=== PATIENT | female | born 1945 | race Caucasian/White ===

== ENCOUNTER 2017-06-28 07:30 | Observation (INO) | payer OTHER ==
--- NOTE | 2017-06-28 06:48 | PDHPUP ---
History & Physical Update H&P update statement: This history and physical update is based on an assessment of the patient which was completed after admission or registration (within 24 hours), but prior to the surgery/procedure. H&P update: H&P reviewed & patient examined, no change in patient's condition since H&P completed
[~2017-06-28 07:30] MED LIST: VANCOMYCIN HCL/NORMAL SALINE 250 ML IV ONE
[2017-06-28] MEDS ORDERED: THROMBIN (BOVINE) 5,000 UNIT VIAL TP ONE (07:43)
[2017-06-28] MEDS ORDERED: BACITRACIN 50,000 UNITS/10 ML SYR IRR ONE ×2 (07:44→09:46)
[2017-06-28] MEDS ORDERED: CHLORHEXIDINE GLUC HIBICLENS 118 ML BTL TP ONE (07:49)
[2017-06-28] MEDS ORDERED: BUPIVACAINE 0.25% 30 ML SDV ONE (07:49)
[2017-06-28] MEDS ORDERED: GABAPENTIN 300 MG CAP PO ONE (08:15)
[2017-06-28] MEDS ORDERED: ACETAMINOPHEN 500 MG TAB PO ONE (08:15)
[2017-06-28] MEDS ORDERED: VANCOMYCIN PHARMACY TO DOSE MISC ONE (08:15)
[2017-06-28] MEDS ORDERED: LIDOCAINE 1% 2 ML INJ ID PRN (08:16)
[2017-06-28] MEDS ORDERED: LR 1,000 ML IV ONE (08:16)
[2017-06-28] MEDS ORDERED: MIDAZOLAM 2 MG/2 ML VIAL IVP ONE (09:45)
[2017-06-28] MEDS ORDERED: PROMETHAZINE HCL 25 MG/ML INJ IVP PRN (09:50)
[2017-06-28] MEDS ORDERED: ALBUTEROL 3 ML DEYVIAL IH PRN (09:50)
[2017-06-28] MEDS ORDERED: DEXAMETHASONE 4 MG/ML VIAL IVP PRN (09:50)
[2017-06-28] MEDS ORDERED: NALOXONE HCL 0.4 MG/ML INJ IVP PRN (09:50)
[2017-06-28] MEDS ORDERED: oxyCODONE IR 5 MG TAB PO PRN (09:50)
[2017-06-28] MEDS ORDERED: fentaNYL 100 MCG/2 ML INJ IVP PRN (09:50)
[2017-06-28] MEDS ORDERED: ONDANSETRON 4 MG/2 ML VIAL IVP PRN ×2 (09:50→12:30)
[2017-06-28] MEDS ORDERED: HYDROmorphONE/DILAUDID 1 MG/ML INJ IVP PRN (09:50)
[2017-06-28] MEDS ORDERED: HYDROCODONE/APAP 5/325 TAB PO PRN (09:50)
--- NOTE | 2017-06-28 09:55 | PDANEPAE ---
ANE History of Present Illness C3-4 ACDF ANE Past Medical History - Cardiovascular History Hx Hypertension: No Hx Arrhythmias: No Hx Chest Pain: No Hx Coronary Artery / Peripheral Vascular Disease: No Hx CHF / Valvular Disease: No Hx Palpitations: No Cardiovascular History Comment: triamerene/hctz for water retension - Pulmonary History Hx COPD: No Hx Asthma/Reactive Airway Disease: No Hx Recent Upper Respiratory Infection: No Hx Oxygen in Use at Home: No Hx Sleep Apnea: No Sleep Apnea Screening Result - Last Documented: Negative Pulmonary History Comment: paralysed right diaphram, - Neurologic History Hx Cerebrovascular Accident: No Hx Seizures: No Hx Dementia: No - Endocrine History Hx Diabetes: No - Renal History Hx Renal Disorders: No - Liver History Hx Hepatic Disorders: No - Neurological & Psychiatric Hx Hx Neurological and Psychiatric Disorders: No - Cancer History Hx Cancer: No - Congenital Disorder History Hx Congenital Disorders: No - GI History Hx Gastrointestinal Disorders: No - Other Health History Other Health History: none - Chronic Pain History Chronic Pain: Yes (lower) - Surgical History Prior Surgeries: none ANE Review of Systems Review of Systems: - Exercise capacity METS (RN): 4 METS ANE Patient History - Allergies Allergies/Adverse Reactions: cefuroxime Allergy (Verified 06/27/17 10:34) Rash cephalexin [From Keflex] Allergy (Verified 06/27/17 10:34) Rash clindamycin Allergy (Verified 06/27/17 10:34) Rash iodine Allergy (Verified 06/27/17 10:33) RASH ALL OVER BODY latex Allergy (Verified 06/27/17 10:34) Swelling/neck,face,throat meloxicam Allergy (Verified 06/27/17 10:34) Vomiting moxifloxacin [From Avelox] Allergy (Verified 06/27/17 10:34) Rash Penicillins Allergy (Verified 06/27/17 10:34) Other-Enter Comments Sulfa (Sulfonamide Antibiotics) Allergy (Verified 06/27/17 10:34) Rash - Home Medications Home Medications: Aspirin [Aspirin 81mg (*)] 81 mg PO DAILY 06/09/17 [Last Taken 06/21/17] Atorvastatin Calcium [Lipitor 10 mg (*)] 10 mg PO DAILY 06/09/17 [Last Taken 05/14] Cholecalciferol Vit D3 [Vitamin D3 (*)] 1,000 units PO DAILY 06/09/17 [Last Taken 06/21/17] Herbals/Supplements -Info Only 1 ea PO DAILY 06/09/17 [Last Taken 06/21/17] Multivitamins [Multivitamin (*)] 1 each PO DAILY 06/09/17 [Last Taken 06/21/17] [place]-3 Fatty Acids [Fish Oil 1000 mg (*)] 1,000 mg PO DAILY 06/09/17 [Last Taken 06/21/17] Triamterene/Hctz 37.5/25 [Maxzide-25 (*)] 0.5 tab PO DAILY 06/09/17 [Last Taken 06/26/17] - NPO status NPO Since - Liquids (Date): 06/27/17 NPO Since - Liquids (Time): 22:00 NPO Since - Solids (Date): 06/27/17 NPO Since - Solids (Time): 20:00 - Smoking Hx Smoking Status: Former smoker - Family Anes Hx Family Hx Anesthesia Complications: none ANE Labs/Vital Signs - Vital Signs Blood Pressure: 142/90 Heart Rate: 63 Respiratory Rate: 18 O2 Sat (%): 95 Height: 157.48 cm Weight: 63.049 kg ANE Physical Exam - Airway Neck exam: FROM Mallampati Score: Class 2 Mouth exam: normal dental/mouth exam - Pulmonary Pulmonary: clear to auscultation - Cardiovascular Cardiovascular: regular rate and rhythym - ASA Status ASA Status: II ANE Anesthesia Plan Anesthesia Plan: general endotracheal anesthesia Total IV Anesthesia: Yes
[2017-06-28] MEDS ORDERED: MIDAZOLAM 2 MG/2 ML VIAL ONE (09:57)
[2017-06-28] MEDS ORDERED: SCOPOLAMINE HYDROBROMIDE 1 MG/3 DAYS PATCH TD ONE (09:58)
[2017-06-28] MEDS ORDERED: SCOPOLAMINE HYDROBROMIDE 1 MG/3 DAYS PATCH TD SCH (10:00)
[2017-06-28] MEDS ORDERED: REMIFENTANIL HCL 1 MG VIAL ONE ×3 (10:01→10:02)
[2017-06-28] MEDS ORDERED: PROPOFOL/EMULSION 500 MG/50 ML BOTTLE IV ONE ×3 (10:02→10:03)
[2017-06-28] MEDS ORDERED: SUCCINYLCHOLINE CHLORIDE 200 MG/10 ML SYR IVP ONE (10:12)
[2017-06-28] MEDS ORDERED: RANITIDINE 50 MG/2 ML VIAL ONE (10:45)
[2017-06-28] MEDS ORDERED: METOCLOPRAMIDE 10 MG/2 ML VIAL ONE (10:45)
[2017-06-28] MEDS ORDERED: ONDANSETRON 4 MG/2 ML VIAL ONE (10:46)
[2017-06-28] MEDS ORDERED: DEXAMETHASONE 4 MG/ML VIAL ONE ×2 (10:46)
--- NOTE | 2017-06-28 12:16 | POSTANESTH ---
Post Anesthetic Evaluation Cardiovascular Status: Normal, Stable Respiratory Status: Normal, Stable Level of Consciousness/Mental Status: Can Participate in Eval, Alert and Oriented Pain Control: Adequate, Prn Tx Ordered Nausea/Vomiting Control: Adequate, Prn Tx Ordered Complications Possibly Related to Anesthesia: None Noted
[2017-06-28] MEDS ORDERED: METHOCARBAMOL 750 MG TAB PO PRN (12:30)
[2017-06-28] MEDS ORDERED: diphenhydrAMINE 25 MG CAP PO PRN (12:30)
[2017-06-28] MEDS ORDERED: POLYETHYLENE GLYCOL 3350 17 GM PKT PO PRN (12:30)
[2017-06-28] MEDS ORDERED: LACTULOSE 20 GM/30 ML UDCUP PO PRN (12:30)
[2017-06-28] MEDS ORDERED: MAGNESIUM HYDROXIDE 30 ML UDCUP PO PRN (12:30)
[2017-06-28] MEDS ORDERED: HYDROmorphone HCL/NS 0.5 MG/ML SYR IVP PRN (12:30)
[2017-06-28] MEDS ORDERED: BISACODYL 10 MG SUPP PR PRN (12:30)
[2017-06-28] MEDS ORDERED: ONDANSETRON DISINTEGRATING 4 MG TAB PO PRN (12:30)
--- NOTE | 2017-06-28 12:30 | SOAPPROG ---
SOAP Progress Note Assessment/Plan: Post Op Visit: S: Awake and alert. Pt with some expected neck pain O: AFVSS/PERRLA/EOMI no droop CN 2-12 grossly intact +lt touch 5/5 BUE/BLE = CDI neck soft and supple collar in place A/P: 72 yo female that is s/p ACDF C3/4 -orders in place -call with any questions or concerns -neck soft and supple -pt seen by Dr Atkinson as well -admit to 3N 06/28/17 12:26 Objective: Vital Signs Temp Pulse Resp BP Pulse Ox 36.4 C 63 18 142/90 H 95 06/28/17 11:38 06/28/17 11:38 06/28/17 11:38 06/28/17 11:38 06/28/17 11:38 ICD10 Worksheet Patient Problems: Problems Problem Status Onset Arthrodesis status Acute Cervical spinal stenosis Acute - ICD10 Problem Qualifiers (1) Cervical spinal stenosis (2) Arthrodesis status
[2017-06-28] MEDS: ACETAMINOPHEN 500 MG TAB PO SCH ×2 (14:45→21:52)
--- NOTE | 2017-06-28 15:03 | GOP ---
[f rep st] OPERATIVE REPORT DATE OF OPERATION: 06/28/2017 SURGEON: Carlos Alberto Atkinson MD REIMBURSEMENT ANALYST: Antonio Jorgensen PA-C. 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 PROCEDURE PERFORMED: Anterior cervical diskectomy with decompression and fusion C3-4 (61094), placem ent of biomechanical intervertebral device C3-4, same incision bone graft harvest, anterior cervical instrumentation C3-4, microscope. FINDINGS: ESTIMATED BLOOD LOSS: 50 cc. INDICATIONS: The patient is a 72-year-old with multilevel cervical stenosis that was most profound a t the C3-4 level, and there was subtle evidence of possible myelomalacia at that level, but she also had diaphragmatic paralysis on the right-hand side. It is unclear whether or not this could be relat ed to the problem at C3-4, and we were not sure of this. I did not anticipate surgery would alleviat e that problem, but given the severity of her stenosis at C3-4 and her cervicalgia, I suggested a sin gle-level ACDF at that level. She also had mild spondylolisthesis at C4-5 and some degree of stenosi s at 5-6, 6-7, but none of the other levels showed any evidence of constriction of the spinal cord, a nd so I therefore suggested only a single-level surgery. The risk of esophageal injury, carotid inju ry, recurrent laryngeal nerve injury, dysphagia, pseudoarthrosis, adjacent segment disease, the possi ble need for future spine surgery, this was all discussed. She wanted to proceed despite the risks. DESCRIPTION OF PROCEDURE: Patient was taken to the operating room, placed in supine position. Gener al anesthesia was begun. A midline shoulder roll was placed. Arms were tucked at the side. The nec k was kept neutral, but the occiput was extended. Her neck was sterilely prepped and draped in the u sual fashion. A localizing x-ray was taken. We made a transverse incision in the rostral neck creas e on the right-hand side. The subcutaneous tissue was dissected with Bovie cautery down through the platysma. We then used a combination of sharp and blunt dissection, working our way down medial to t he sternocleidomastoid and lateral to the strap muscles down to the prevertebral space. Exposure was straightforward. We elevated the longus colli muscles off the spine, inserted a needle at C3-4, javy t an x-ray confirming the location then put distraction pins at C3-4. We then incised the C3-4 disk, removed the disk and the cartilaginous endplates. Operating microscope was introduced. We then akila lled and harvested subchondral bone for autologous grafting purposes, and under the scope, we opened the posterior longitudinal ligament and decompressed the thecal sac and the neural foramen bilaterall y. A nice decompression was obtained. There was some epidural bleeding at the nerve root sleeves bi laterally in the foramen, and this was controlled with a small piece of Gelfoam. We then chose a 7 m m x 14 x 11 mm device. It was fashioned to fit in the space at C3-4 and packed with autologous bone dust and it was inserted. A nice fit was obtained. We removed our distraction pins and placed a 21 mm plate down across C3-4. We placed a single screw at C3, a single screw at C4, shot an x-ray, and we were happy with the position of the implant. We then placed the remaining 2 screws and locked all 4 screws according to company specification. This was verified with the people in the room. We the n achieved meticulous hemostasis. There had been very little blood loss during the procedure or duri ng the exposure. We then placed some 0.25% Marcaine in the prevertebral space and then closed the pl atysma with interrupted Vicryl sutures, and the skin was reapproximated with interrupted Vicryl sutur es. Steri-Strips were applied to the skin. The patient was reversed from anesthesia, extubated, and transferred to the recovery room in stable condition. COMPLICATIONS: None. INSTRUMENTATION USED: [employer] 21 mm Zevo plate with 7 x 14 x 11 mm Peek PTC implant, and we used 1 3 x 3.5 mm screws, and they were all locked according to company specification. /[id number]/MODL
[2017-06-28] MEDS: NS W/ 20 KCl/L 1,000 ML IV SCH (15:24)
[2017-06-28] MEDS: oxyCODONE IR 5 MG TAB PO PRN (17:02)
[2017-06-28] MEDS ORDERED: SENNOSIDES 17.6 MG/10 ML UDL PO SCH (21:00)
[2017-06-28] MEDS: SENNOSIDES/DOCUSATE SODIUM TAB PO SCH (21:54)
[2017-06-28] MEDS: FAMOTIDINE 20 MG TAB PO SCH (21:54)
[2017-06-28] MEDS ORDERED: VANCOMYCIN 750 MG in NS 150 ML IV ONE (22:00)
[2017-06-29] MEDS: ACETAMINOPHEN 500 MG TAB PO SCH (05:24)
[2017-06-29] MEDS: oxyCODONE IR 5 MG TAB PO PRN ×2 (05:32→12:21)
[2017-06-29] MEDS: NS W/ 20 KCl/L 1,000 ML IV SCH (06:23)
--- NOTE | 2017-06-29 07:48 | NEUSURGPN ---
Date of Surgery: 06/28/17 Post Op Day: 1 Assessment/Plan: Assessment: 72 yo female that is s/p ACDF C3/4 POD #1 Plan: -s/p ACDF C3/4: pt with some expected neck pain, arms feel fine -post op xrays pending today -PT/OT pending -eating/drinking and voiding -orders in place -call with any questions or concerns -neck soft and supple -ok for soft collar during night and hard collar during day -pt seen by Dr Atkinson as well -plan for dc to home later today if meet criteria Subjective: Awake and alert. NAD. Eating/drinking and voiding. No f/c/n/v/d. No zapata/cp/ sob/abd or gu complaints. Objective: AFVSS/PERRLA/EOMI no droop CN 2-12 grossly intact +lt touch 5/5 BUE/BLE = CDI neck soft and supple collar in place Neuro Check Frequency: per routine Urinary Catheter in Place: No - Physician Discussed Patient with Dr.: Demetrio Patient Seen by : Demetrio Neurosurgery Physical Exam - Vitals, I&O, Labs I and O 06/28/17 06/29/17 06/30/17 05:59 05:59 05:59 Intake Total 2000 Output Total 650 Balance 1350 Weight 63.04 kg Intake: Oral (ml) 610 IV Intake (ml) 1000 IV Infused (ml) 390 NS W/ 20 KCl/L 1,000 ml @ 390 75 mls/hr IV CONT JUSTIN Rx #:[id number] Output: Urine (ml) 600 Toilet 600 Estimated Blood Loss (ml) 50 Other: Number of Voids Toilet 2 Vital Signs Temp Pulse Resp BP Pulse Ox 36.8 C 60 18 104/59 L 97 06/29/17 04:00 06/29/17 04:00 06/29/17 04:00 06/29/17 04:00 06/29/17 04:00 ICD10 Worksheet Patient Problems: Problems Problem Status Onset Arthrodesis status Acute Cervical spinal stenosis Acute - ICD10 Problem Qualifiers (1) Cervical spinal stenosis (2) Arthrodesis status
[2017-06-29] MEDS: FAMOTIDINE 20 MG TAB PO SCH (08:36)
[2017-06-29] MEDS: SENNOSIDES/DOCUSATE SODIUM TAB PO SCH (08:36)
[2017-06-29] MEDS ORDERED: ATORVASTATIN CALCIUM 10 MG TAB PO SCH (09:00)
[2017-06-29] MEDS ORDERED: TRIAMTERENE/HCTZ 37.5/25 1 EACH TAB PO SCH (09:00)
[2017-06-29 12:05] VITALS: BP 106/68; PULSE 65; RESP 15; TEMP 98.3; O2SAT 93
--- NOTE | 2017-06-29 14:44 | ASMTCMCOM ---
CM Note CM Note Notes: Pt medically stable for d/c home with family support. No CM d/c needs identified. 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 Date Signed: 06/29/2017 02:43 PM Electronically Signed By:GORDON Nowak
[2017-07-01] MEDS ORDERED: ENOXAPARIN 40 MG/0.4 ML SYR SC SCH (09:00)
[2017-07-01] MEDS ORDERED: PATCH REMOVAL 1 EA PATCH TD SCH (09:53)
== END 2017-06-29 14:15 | disposition home or self-care (01) ==
LOC: F3N 07:55
PROVIDERS: ADMIT Neurological Surgery; ATTEND Neurological Surgery
PROC: 0RG10A0 Fusion of Cervical Vertebral Joint with Interbody Fusion Device, Anterior Approach, Anterior Column, Open Approach (ICD-10-PCS; principal; 2017-06-28 10:00)
DX: M48.02 Spinal stenosis, cervical region (principal); M54.12 Radiculopathy, cervical region; J98.6 Disorders of diaphragm; M43.12 Spondylolisthesis, cervical region
CPT/HCPCS: 22551; 22853; 72040; 76001; 92610; 97116; 97161; 97165; 97535; C1713; G8978; G8979; G8980; G8987; G8988; G8989; G8996; G8997; J0171; J0330; J1100; J1170; J2250; J2405; J2704; J2765; J2780; J3370